=== PATIENT | female | born 1985 | race Caucasian/White ===

== ENCOUNTER → 2017-01-14 | Outpatient (CLI) | payer BC ==
[~2017-01-14] MED LIST: AZIT250T81 PO
[2017-01-14 12:45] VITALS: BP 123/78
--- NOTE | 2017-01-14 12:45 | Urgent Care T Sheet Gen (E) ---
Intake General Temperature (Fahrenheit): 98.8 Pulse: 98 Blood Pressure Systolic: 123 Blood Pressure Diastolic: 78 Respirations: 18 SPO2: 98 Description of Symptoms Patient presents with sore throat since yesterday. Initially thought it was allergies however she states her throat doesn't feel irritated, it aches. States it feels like there is a ping pong ball stuck on the L side. Pain radiates into the ears. Ears aches but don't feel plugged up. No fever. Took some Tylenol earlier which helped. History of Present Illness Home Meds Active Scripts Azithromycin (Zithromax Z-Emmanuel)6 Tab/Pkt [id number] Mg PO SEE INSTRUCTIONS #6 TAB Ref 0 Day One: Take 2 tablets by mouth Days Two-Five: Take 1 tablet by mouth Prov:CELSA REYES 01/14/17 Respiratory Constitutional Symptoms: No Fever, No Malaise EENTM: Ear pain Throat pain Throat swelling Respiratory: No symptoms reported Cardiovascular: No symptoms reported Gastrointestinal/Abdominal: No symptoms reported All Other Systems Reviewed Remaining Systems: All other systems reviewed with negative findings Physical Exam Physical Exam General Appearance: WD/WN No apparent distress Eyes, Ears, Nose, Throat Ex: TMs normal (air fluid bubbles but no redness) Pharyngeal erythema (very red and swollen. no exudates.) Other (nose is clear) Neck Exam: Supple Lymphadenopathy (anterior cervical) Respiratory Exam: Lungs clear Normal breath sounds Cardiovascular Exam: Regular rate, rhythm Progress/Orders Lab Results Labs Results: Rapid Strep (positive) Departure Urgent Care Impression Impression: Primary Impression: Strep pharyngitis Departure Disposition: HOME OR SELF-CARE Condition: Stable Referrals: KARLA VALDIVIA MD (PCP) Additional Instructions: I have started the patient on Zpak for treatment. Rest. Fluids Alternate Tylenol and Motrin for pain. If swelling persists, she is to call and I will start her on Prednisone Return as needed Lysol common household areas to prevent spreading. patient understands DC instructions. All questions were answered. Scripts Azithromycin (Zithromax Z-Emmanuel)6 Tab/Pkt [id number] Mg PO SEE INSTRUCTIONS #6 TAB Ref 0 Day One: Take 2 tablets by mouth Days Two-Five: Take 1 tablet by mouth Prov:CELSA REYES 01/14/17 End of report . CELSA REYES January 14, 2017 11:00
== END ==
LOC: MHUC 10:15
PROVIDERS: ATTEND Physician Assistant
DX: J02.0 Streptococcal pharyngitis (principal)
CPT/HCPCS: 87880; 99213